=== PATIENT | male | born 1995 | race Caucasian/White ===

== ENCOUNTER 2018-01-01 18:44 | Emergency (ER) | END 2018-01-01 20:26 | disposition home or self-care (01) ==

== ENCOUNTER 2018-08-26 19:43 | Emergency (ER) | payer OTHER ==
[~2018-08-26] VITALS: Ht 172.7 cm; Wt 67.8 kg
[~2018-08-26 19:43] MED LIST: ACET-141 PO; DOXY100T20 PO; IBUP-1542 PO; IBUP-1561 PO; NAPR-985 PO
[2018-08-26 20:02] VITALS: Ht 172.7 cm; Wt 67.8 kg
--- NOTE | 2018-08-26 22:27 | ERD ---
ER Documentation Chief Complaint Chief Complaint states left ingrown toe nail x 1 month HPI This patient is a pleasant 23-year-old male with past medical history of ingrown toenails presenting to the emergency department with pain to the medial aspect of the left great toe with redness and whitish discharge. He reports more pain with walking. He tried no medication for relief of symptoms. His pain is moderate to severe. He denies any fevers, chills, or other symptoms at this time. ROS All systems reviewed and are negative except as per history of present illness. Medications Home Meds Active Scripts Naproxen* (Naprosyn*) 500 Mg Tablet, 500 MG PO BID PRN for PAIN AND/OR INFLAMMATION, #30 TAB Prov:FRANCISCA DICKSON PA-C 08/26/18 Doxycycline Hyclate* (Doxycycline Hyclate*) 100 Mg Tablet.dr, 100 MG PO BID for 10 Days, TAB Prov:FRANCISCA DICKSON PA-C 08/26/18 Ibuprofen* (Motrin*) 600 Mg Tab, 600 MG PO Q6, #15 TAB Prov:SIM ROLON MD 01/01/18 Allergies Allergies: Coded Allergies: No Known Allergy (Unverified , 01/01/18) PMhx/Soc Medical and Surgical Hx: pt denies Medical Hx, pt denies Surgical Hx Hx Alcohol Use: No Hx Substance Use: No Hx Tobacco Use: No Smoking Status: Never smoker FmHx Family History: No diabetes Physical Exam Vitals Vital Signs Date Temp Pulse Resp B/P (MAP) Pulse Ox O2 O2 Flow FiO2 Time Delivery Rate 08/26/18 99.0 81 18 133/78 99 20:02 (96) Physical Exam Const: No acute distress Head: Atraumatic Eyes: Normal Conjunctiva ENT: Normal External Ears, Nose and Mouth. Neck: Full range of motion. No meningismus. Resp: No respiratory distress. Skin: No petechiae or rashes Back: No midline or flank tenderness Ext: Erythema and edema noted to the medial aspect of the left great toe. No discharge. No lymphatic streaking. No erythema of the foot. Patient has tenderness palpation of the nailbed on the left great toe. Neur: Awake and alert Psych: Normal Mood and Affect Procedures/MDM 23-year-old male presented with signs and symptoms most consistent with infected ingrowing great toenail on the left foot. No evidence of ascending cellulitis, systemic infection, or other emergent process. Patient will be discharged home in stable condition with prescription for doxycycline and naproxen and instructions to follow-up with podiatry. He can return here for any concerning symptoms. He understands and agrees with the plan. Departure Diagnosis: Primary Impression: Ingrowing nail, left great toe Condition: Fair Patient Instructions: Ingrown Toenail, Infected (Abx Only) Referrals: VIRI LOMAS RONALD J. DPM CHAUDHRY, ABID N DPM CHUN, CAROLYN DPM ESPENSEN, ERIC H. D.P.M. HAGOPJANIAN, ARMEN DPM KOTZEN, MICHAEL D. MD MASLIAH, MAURICE R DPM MEJIA, OTTONIEL A POUGATSCH, DAVID A. DPM ROGERS, LEE C. DPM AGATA SCANLON RICHARD J. DPM Additional Instructions: SPECIALIST: YOU HAVE A MEDICAL CONDITION WHICH REQUIRES YOU TO SEE A SPECIALIST WITHIN THE NEXT 1-2 DAYS. PLEASE FOLLOW UP WITH YOUR PRIMARY PHYSICIAN FOR REFFERAL.IF YOU DO NOT HAVE A PRIMARY CARE PHYSICIAN AND/OR YOU CAN NOT AFFORD TO SEE A PHYSICIAN THE FOLLOWING RESOURCES HAVE BEEN SUPPLIED TO YOU. IT IS YOUR RESPONSIBILITY TO BE SEEN BY THE SPECIALIST: [employer] FRANCISCA DICKSON PA-C Aug 26, 2018 22:27
[2018-08-26 22:45] VITALS: BP 132/73; PULSE 63; RESP 18
== END 2018-08-26 22:45 | disposition home or self-care (01) ==
LOC: FTE 19:43
DX: L60.0 Ingrowing nail (principal)
CPT/HCPCS: 99283

== ENCOUNTER 2018-08-31 14:02 | Emergency (ER) | payer OTHER ==
[~2018-08-31] VITALS: Ht 175.3 cm; Wt 69.1 kg
[~2018-08-31 14:02] MED LIST changes: -ACET-141 PO; -IBUP-1561 PO
[2018-08-31 14:14] VITALS: BP 127/57; PULSE 94; RESP 18; Ht 175.3 cm; Wt 69.1 kg
[2018-08-31] MEDS ORDERED: HYDROCODONE/APAP (5/325) TAB PO ONE (16:00)
[2018-08-31] MEDS ORDERED: IBUP-1561 PO (17:36)
[2018-08-31] MEDS ORDERED: ACET-141 PO (17:36)
--- NOTE | 2018-08-31 17:37 | ERD ---
ER Documentation Chief Complaint Chief Complaint left ankle pain s/p running yesterday HPI 23-year-old male with no significant past medical history presents for left ankle pain status post twisting his ankle while running yesterday. He states that he currently has 10 out of 10 pain over the lateral side of the left ankle. The pain is described as a sharp sensation. Pain is worse with movement. There is no pain radiation. He took some Advil at home with only mild relief. Denies fevers or chills. Denies chest pain shortness of breath. No fall or head injury noted. No other modifying factors noted, no treatments tried at home. ROS All systems reviewed and are negative except as per history of present illness. Medications Home Meds Active Scripts Ibuprofen* (Motrin*) 400 Mg Tab, 400 MG PO Q6H PRN for PAIN AND OR ELEVATED TEMP, #30 TAB Prov:FRANCISCO ADAMS DO 08/31/18 Acetaminophen* (Acetaminophen*) 500 MG Extra Strength Tablet, 500 MG PO Q4H PRN for PAIN AND OR ELEVATED TEMP, #30 TAB Prov:FRANCISCO ADAMS DO 08/31/18 Naproxen* (Naprosyn*) 500 Mg Tablet, 500 MG PO BID PRN for PAIN AND/OR INFLAMMATION, #30 TAB Prov:FRANCISCA DICKSON PA-C 08/26/18 Doxycycline Hyclate* (Doxycycline Hyclate*) 100 Mg Tablet.dr, 100 MG PO BID for 10 Days, TAB Prov:FRANCISCA DICKSON PA-C 08/26/18 Ibuprofen* (Motrin*) 600 Mg Tab, 600 MG PO Q6, #15 TAB Prov:SIM ROLON MD 01/01/18 Allergies Allergies: Coded Allergies: No Known Allergy (Unverified , 01/01/18) PMhx/Soc Medical and Surgical Hx: pt denies Medical Hx, pt denies Surgical Hx Hx Alcohol Use: No Hx Substance Use: Yes (Marijuana use) Hx Tobacco Use: Yes (Occasional) Smoking Status: Never smoker FmHx Family History: No coronary disease Physical Exam Vitals Vital Signs Date Temp Pulse Resp B/P (MAP) Pulse Ox O2 O2 Flow FiO2 Time Delivery Rate 08/31/18 99.2 94 18 127/57 98 14:14 (80) Physical Exam Const: No acute distress Resp: Clear to auscultation bilaterally Cardio: Regular rate and rhythm, no murmurs Skin: No petechiae or rashes Back: No midline or flank tenderness Neur: Awake and alert Psych: Normal Mood and Affect Lower Extremity -left: Skin: No laceration Compartments: Soft Motor: Full active range of motion hip/knee/decreased range of motion of the left ankle Sensation: Intact to light touch FDWS/MF/LF/P surfaces. Bones: Nontender pelvis/knee/proximal tibia/there is tenderness palpation over the left lateral malleolus and 2 cm above the left lateral malleolus Joints: No effusion or laxity Pulses/Perfusion: 2+ DP, Capillary refill < 2 seconds Results 24 hrs Current Medications Medications Dose Sig/Roe Start Time Status Last (Trade) Ordered Route PRN Stop Time Admin Dose Reason Admin 1 tab ONCE ONCE 08/31/18 DC 08/31/18 Acetaminophen PO 16:00 15:45 / 08/31/18 16:01 Hydrocodone Bitart ([place] (5/325)) Procedures/MDM Medical Decision Making: Differential diagnosis includes but not limited to fracture, dislocation, muscle strain, ligamentous sprain, septic joint, osteomyelitis, gout, Patient appeared well on physical exam. There was tenderness over the left ankle Patient was neurovascularly intact Patient denies fever, no recent infection, low suspicion for septic joint or osteomyelitis. ED course: Patient was given [place] Symptoms improved with treatment. Imaging: X-ray left ankle 3V Interpreted by me: Bones: No fracture Joints: No dislocation Foreign Body: None Given the amount of pain that patient was in, the left ankle was splinted patient was provided crutches for comfort. Splint Note Type: Ankle boot Location: Left ankle Indication: Possible fracture Splint Assessment: Neurovascularly intact post splint placement with good fit. Patient advised to return to the ER in 1 week for repeat x-rays if the pain does not resolve. Prescription(s): Patient given prescription for supportive medication(s). Patient advised to follow up with PCP in 1-2 days. Patient advised to return to ED for new or worsening symptoms. Patient stable on discharge from the ED. Disclaimer: Inadvertent spelling and grammatical errors are likely due to EHR/dictation software use and do not reflect on the overall quality of patient care. Also, please note that the electronic time recorded on this note does not necessarily reflect the actual time of the patient encounter. Departure Diagnosis: Primary Impression: Ankle injury Encounter type: initial encounter Laterality: left Qualified Codes: S99.912A - Unspecified injury of left ankle, initial encounter Condition: Fair Patient Instructions: Treating Ankle Sprains Referrals: MARY RAMOS MD= (PCP) Additional Instructions: Call your primary care doctor TOMORROW for an appointment during the next 1-2 days.See the doctor sooner or return here if your condition worsens before your appointment time. if ankle pain goes on for one week, return to ER for repeat imaging FRANCISCO ADAMS DO Aug 31, 2018 17:37
== END 2018-08-31 17:46 | disposition home or self-care (01) ==
LOC: FTE 14:02
DX: S99.912A Unspecified injury of left ankle, initial encounter (principal); X50.1XXA Overexertion from prolonged static or awkward postures, initial encounter; Y92.9 Unspecified place or not applicable; Z87.891 Personal history of nicotine dependence
CPT/HCPCS: 73610; L4386; Z7502; Z7610